=== PATIENT | female | born 2000 | race African-American/Black ===

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

== ENCOUNTER 2022-05-18 16:08 | Emergency (ER) | payer MEDICAID ==
[~2022-05-18] VITALS: Ht 162.6 cm; Wt 69.0 kg
[2022-05-18] MEDS ORDERED: TETANUS, DIPHTHERIA, PERTUSSIS VAC/PF 0.5ML (>10YR OLD) IM ONE (17:45)
[2022-05-18 18:39] LABS: BASOPHILS % 0.3 % (0.0-2.0); HEMATOCRIT. 39.5 % (36.0-48.0); LYMPHOCYTES % 12.5 % (20.0-50.0); MEAN CORPUSCULAR HEMOGLOBIN 30.4 pg (28.0-32.0); MEAN CORPUSCULAR VOLUME 92.4 fL (81.0-99.0); MEAN PLATELET VOLUME 8.4 fl (7.4-10.4); MONOCYTES % 7.7 % (2.0-8.0); NEUTROPHILS % 79.5 % (40.0-76.0); PLATELET 287 x1000/uL (130-400); RED BLOOD CELL COUNT 4.27 mill/uL (4.2-5.4); RED CELL DISTRIBUTION WIDTH 14.9 % (11.6-14.6)
[2022-05-18 18:41] LABS: CLARITY URINE CLEAR (CLEAR); COLOR URINE YELLOW (YELLOW); KETONES URINE TRACE (NEGATIVE); LEUKOCYTE ESTERASE URINE NEGATIVE (NEGATIVE); NITRITE URINE NEGATIVE (NEGATIVE); OCCULT BLOOD URINE NEGATIVE (NEGATIVE); PH URINE 5.5 (4.5-8.0); PROTEIN URINE NEGATIVE (NEGATIVE); SPECIFIC GRAVITY URINE 1.017 (1.005-1.030); UROBILINOGEN URINE 0.2 E.U./dL (0.2-1.0)
[2022-05-18 18:42] LABS: CHLORIDE 106 mEq/L (98-107)
[2022-05-18 18:51] LABS: ETHANOL BLOOD 42 mg/dL
[2022-05-18 18:52] LABS: *AMPHETAMINES SCREEN URINE NEGATIVE (NEGATIVE); *BARBITURATES SCREEN URINE NEGATIVE (NEGATIVE); *BENZODIAZEPINES SCREEN URINE NEGATIVE (NEGATIVE); *COCAINE SCREEN URINE NEGATIVE (NEGATIVE); METHADONE URINE SCREEN NEGATIVE (NEGATIVE); PHENCYCLIDINE URINE SCREEN NEGATIVE (NEGATIVE)
[2022-05-18 18:53] LABS: HCG SCREEN NEGATIVE
[2022-05-18 18:57] LABS: CANNABINOID URINE SCREEN PRESUMTIVE POSITIVE (NEGATIVE); OPIATES URINE SCREEN PRESUMTIVE POSITIVE (NEGATIVE)
[2022-05-19] MEDS ORDERED: ACETAMINOPHEN 325MG TABLET PO NR (05:00)
[2022-05-19 08:00] VITALS: BP 127/86
== END 2022-05-19 11:00 | disposition home or self-care (01) ==
LOC: ER 16:08
DX: S60.812A Abrasion of left wrist, initial encounter (principal); S60.811A Abrasion of right wrist, initial encounter; F41.9 Anxiety disorder, unspecified; F32.A Depression, unspecified; F12.10 Cannabis abuse, uncomplicated; X78.8XXA Intentional self-harm by other sharp object, initial encounter; Y93.89 Activity, other specified; Y92.89 Other specified places as the place of occurrence of the external cause
CPT/HCPCS: 36415; 80053; 80305; 80307; 80320; 80329; 81003; 84703; 85025; 90471; 90715; 99285; G0480

== ENCOUNTER 2023-04-09 02:26 | Emergency (ER) | payer MEDICAID ==
[~2023-04-09] VITALS: Ht 157.5 cm; Wt 59.0 kg
[2023-04-09 02:28] VITALS: TEMP 97.8; O2SAT 97
[2023-04-09 02:54] LABS: BASOPHILS % 0.6 % (0.0-2.0); EOSINOPHILS % 0.8 % (0.0-5.0); HEMATOCRIT. 38.7 % (36.0-48.0); HEMOGLOBIN. 13.3 g/dL (12.0-16.0); LYMPHOCYTES % 40.3 % (20.0-50.0); MEAN CORPUSCULAR HEMOGLOBIN 31.5 pg (28.0-32.0); MEAN CORPUSCULAR VOLUME 91.8 fL (81.0-99.0); MEAN PLATELET VOLUME 8.8 fl (7.4-10.4); MONOCYTES % 10.3 % (2.0-8.0); PLATELET 232 x1000/uL (130-400); RED BLOOD CELL COUNT 4.21 mill/uL (4.2-5.4); RED CELL DISTRIBUTION WIDTH 13.1 % (11.6-14.6)
[2023-04-09 03:12] LABS: CHLORIDE 112 mEq/L (98-107)
[2023-04-09 03:17] LABS: HCG SCREEN NEGATIVE
[2023-04-09 03:20] LABS: ETHANOL BLOOD < 10 mg/dL (-10)
[2023-04-09] MEDS ORDERED: KETOROLAC 60MG/2ML VIAL IM STA (03:37)
[2023-04-09 04:02] VITALS: BP 133/92; PULSE 90; RESP 16
[2023-04-09] MEDS ORDERED: IBUP-2029 MT (05:44)
== END 2023-04-09 06:44 | disposition home or self-care (01) ==
LOC: ER 02:26
DX: R10.9 Unspecified abdominal pain (principal); F12.10 Cannabis abuse, uncomplicated; Z98.890 Other specified postprocedural states
CPT/HCPCS: 36415; 74176; 80053; 80320; 83690; 84703; 85025; 96372; 99285; J1885; Z7610; G0480

== ENCOUNTER 2025-04-17 12:06 | Emergency (ER) | payer MEDICAID ==
[~2025-04-17] VITALS: Ht 154.9 cm; Wt 80.0 kg
[~2025-04-17 12:06] MED LIST changes: +IBUP-2029 MT
[2025-04-17 12:08] VITALS: TEMP 36.7; O2SAT 100
[2025-04-17] MEDS: PREDNISONE 20MG TABLET PO ONE (13:18)
[2025-04-17] MEDS: FAMOTIDINE 20MG TABLET PO ONE (13:18)
[2025-04-17] MEDS ORDERED: P50 MT (14:45)
[2025-04-17] MEDS ORDERED: FAMO-135 MT (14:45)
[2025-04-17] MEDS ORDERED: B50 MT (14:46)
[2025-04-17] MEDS ORDERED: LIDO700A30 TP (14:46)
[2025-04-17 14:56] VITALS: BP 120/66; PULSE 60; RESP 12; O2SAT 100
== END 2025-04-17 14:58 | disposition home or self-care (01) ==
LOC: ER 12:06
DX: L50.0 Allergic urticaria (principal); T39.315A Adverse effect of propionic acid derivatives, initial encounter; F10.90 Alcohol use, unspecified, uncomplicated; F12.90 Cannabis use, unspecified, uncomplicated; R21 Rash and other nonspecific skin eruption; F32.A Depression, unspecified; F41.9 Anxiety disorder, unspecified; J45.909 Unspecified asthma, uncomplicated; X58.XXXA Exposure to other specified factors, initial encounter; Y90.9 Presence of alcohol in blood, level not specified
CPT/HCPCS: 99283; J7512